=== PATIENT | female | born 1980 | race Two or more races ===

== ENCOUNTER 2018-08-27 06:26 | Day surgery (SDC) | payer BC ==
--- NOTE | 2018-08-27 07:10 | PCM.PREANE ---
Preanesthetic Assessment - Procedure Proposed Procedure: cervical cerclage - Anesthesia/Transfusion/Family Hx Anesthesia History: No Prior Anesthesia Family History of Anesthesia Reaction: No Transfusion History: No Prior Transfusion(s) - Review of Systems General: No Symptoms Pulmonary: No Symptoms Cardiovascular: No Symptoms Gastrointestinal: Other (GERD) Neurological: Other (back pain since ) - Physical Assessment Height: 4 ft 11 in Weight: 81.193 kg ASA Class: 2 Mental Status: Alert & Oriented x3 Airway Class: Mallampati = 2 Dentition: Reports: Normal Dentition ROM/Head Extension: Full Lungs: Clear to Auscultation, Normal Respiratory Effort Cardiovascular: Regular Rate, Regular Rhythm - Allergies Allergies/Adverse Reactions: Allergies Allergy/AdvReac Type Severity Reaction Status Date / Time No Known Allergies Allergy Verified 08/24/18 14:56 - Blood Blood Available: No - Anesthesia Plan Pre-Op Medication Ordered: None - Acknowledgements Anesthesia Type Planned: Spinal Pt an Appropriate Candidate for the Planned Anesthesia: Yes Alternatives and Risks of Anesthesia Discussed w Pt/Guardian: Yes Pt/Guardian Understands and Agrees with Anesthesia Plan: Yes PreAnesthesia Questionnaire HEENT History: Reports: None Cardiovascular History: Reports: None Respiratory History: Reports: Other (See Below) Other Respiratory History: "puntured lung as a child, age 7 or 8" Gastrointestinal History: Reports: GERD Genitourinary History: Reports: None RN HYPERBARIC History: Reports: Spontaneous Musculoskeletal History: Reports: Back Pain, Chronic Neurological History: Reports: None Psychiatric History: Reports: None Endocrine/Metabolic History: Reports: None Hematologic History: Reports: None Immunologic History: Reports: None Oncologic (Cancer) History: Reports: None Dermatologic History: Reports: None - Past Surgical History Head Surgeries/Procedures: Reports: None HEENT Surgical History: Reports: None Cardiovascular Surgical History: Reports: None Respiratory Surgical History: Reports: None GI Surgical History: Reports: None Female Surgical History: Reports: None Endocrine Surgical History: Reports: None Neurological Surgical History: Reports: None Musculoskeletal Surgical History: Reports: None Oncologic Surgical History: Reports: None Dermatological Surgical History: Reports: None - SUBSTANCE USE Smoking Status *Q: Never Smoker Recreational Drug Use History: No - HOME MEDS Home Medications: Home Meds Calcium Carbonate [Tums] 1 tab.chew CHEW ASDIRECTED PRN 08/24/18 [History] PNV95/Ferrous Fumarate/FA [ Vitamin Tablet] 1 tab PO DAILY 08/24/18 [ History] - CURRENT (IN HOUSE) MEDS Current Meds: Current Medications Lactated Ringer's (Ringers, Lactated) 1,000 mls @ 125 mls/hr IV ASDIRECTED [place]
[2018-08-27] MEDS ORDERED: Lactated Ringers 1,000 ML IV SCH (07:15)
[2018-08-27] MEDS ORDERED: Phenylephrine/Normal Saline 100 MCG/ML 10 ML Syringe ONE (08:15)
--- NOTE | 2018-08-27 08:30 | PCM.DCSUM1 ---
Discharge Summary - Hospital Course Diagnosis: Stroke: No - Discharge Data Discharge Date: 08/27/18 Discharge Disposition: Home, Self-Care 01 Condition: Good - Patient Instructions Diet: Usual Diet as Tolerated Activity: As Tolerated Driving: Do Not Drive Showering/Bathing: May Shower - Discharge Plan Home Medications: Home Meds Calcium Carbonate [Tums] 1 tab.chew CHEW ASDIRECTED PRN 08/24/18 [History] PNV95/Ferrous Fumarate/FA [ Vitamin Tablet] 1 tab PO DAILY 08/24/18 [ History] - Discharge Summary/Plan Comment DC Time >30 min.: Yes - General Info Date of Service: 08/27/18 Functional Status: Reports: Pain Controlled - Review of Systems General: Reports: No Symptoms HEENT: Reports: No Symptoms Pulmonary: Reports: No Symptoms Cardiovascular: Reports: No Symptoms Gastrointestinal: Reports: No Symptoms Genitourinary: Reports: No Symptoms Musculoskeletal: Reports: No Symptoms Skin: Reports: No Symptoms Neurological: Reports: No Symptoms Psychiatric: Reports: No Symptoms - Patient Data Vitals - Most Recent: Last Vital Signs Temp 36.4 C 08/27/18 06:45 Pulse 91 08/27/18 06:45 Resp 18 08/27/18 06:45 BP 126/69 08/27/18 06:45 Pulse Ox 99 08/27/18 06:45 Weight - Most Recent: 81.193 kg Lab Results - Last 24 hrs: Laboratory Results - last 24 hr 08/27/18 Range/Units 07:10 Plt Count 310 (150-400) K/uL Med Orders - Current: Current Medications Lactated Ringer's (Ringers, Lactated) 1,000 mls @ 125 mls/hr IV ASDIRECTED [place] Last Admin: 08/27/18 07:00 Dose: 125 mls/hr Discontinued Medications Phenylephrine HCl (Phenylephrine In Ns 100 Mcg/Ml) Confirm Administered Dose 1 mg .ROUTE .STK-MED ONE Stop: 08/27/18 08:16 - Exam General: Reports: Alert, Oriented HEENT: Reports: Pupils Equal, Pupils Reactive, EOMI, Mucous Membr. Moist/[place] Neck: Reports: Supple Lungs: Reports: Clear to Auscultation, Normal Respiratory Effort Cardiovascular: Reports: Regular Rate, Regular Rhythm GI/Abdominal Exam: Normal Bowel Sounds, Soft, Non-Tender, No Organomegaly, No Distention, No Abnormal Bruit, No Mass, Pelvis Stable (Female) Exam: Normal External Exam, Normal Speculum Exam, Normal Bimanual Exam Rectal (Female) Exam: Normal Exam, Normal Rectal Tone Back Exam: Reports: Normal Inspection, Full Range of Motion Extremities: Normal Inspection, Normal Range of Motion, Non-Tender, No Pedal Edema, Normal Capillary Refill Skin: Reports: Warm, Dry, Intact Wound/Incisions: Reports: Healing Well Neurological: Reports: No New Focal Deficit Psy/Mental Status: Reports: Alert, Normal Affect, Normal Mood
--- NOTE | 2018-08-27 08:31 | PCM.OPNOTE ---
- General Post-Op/Procedure Note Date of Surgery/Procedure: 08/27/18 Operative Procedure(s): Hinojosa Cerclage Pre Op Diagnosis: [id number] short crevix Post-Op Diagnosis: Same Anesthesia Technique: Spinal Primary Surgeon: Nic Rockwell EBL in mLs: 20 Complications: None Condition: Good
--- NOTE | 2018-08-27 08:48 | PCM.POSTAN ---
POST ANESTHESIA ASSESSMENT - MENTAL STATUS Mental Status: Alert, Oriented - VITAL SIGNS Pulse Rate: 74 SaO2: 99 Resp Rate: 12 Blood Pressure: 115/38 - RESPIRATORY Respiratory Status: Respiratory Rate WNL, Airway Patent, O2 Saturation Stable - CARDIOVASCULAR CV Status: Pulse Rate WNL, Blood Pressure Stable - GASTROINTESTINAL GI Status: No Symptoms - PAIN Pain Score: 0 - POST OP HYDRATION Hydration Status: Adequate & Stable
--- NOTE | 2018-08-27 11:13 | PCM48HPAN ---
Post Anesthesia Note - EVALUATION WITHIN 48HRS OF ANESTHETIC Vital Signs in Normal Range: Yes Patient Participated in Evaluation: Yes Respiratory Function Stable: Yes Airway Patent: Yes Cardiovascular Function Stable: Yes Hydration Status Stable: Yes Pain Control Satisfactory: Yes Nausea and Vomiting Control Satisfactory: Yes Mental Status Recovered: Yes Pulse Rate: 74 Resp Rate: 12 Blood Pressure: 115/38 - COMMENTS/OBSERVATIONS Free Text/Narrative:: no anesthesia problems
--- NOTE | 2018-08-27 14:51 | OR ---
SURGEON: Nic Rockwell MD DATE OF PROCEDURE: 08/27/2018 PREOPERATIVE DIAGNOSIS: Intrauterine at 23 to 24 weeks, short cervix. POSTOPERATIVE DIAGNOSIS: Intrauterine at 23 to 24 weeks, short cervix. PROCEDURE PERFORMED: Saucedo cerclage using Mersilene band. PRIMARY SURGEON: Nic Rockwell MD. F[employer]: OR tech. ANESTHESIA: Spinal, Rubi Savage and Dr. Cross. ESTIMATED BLOOD LOSS: 20 mL. COMPLICATIONS: None. INDICATION: This patient is 37. She is primigravida. She never had any procedure done on her cervix. On her 20-week ultrasound, anatomy and cervical length, was found to have cervical length of 1.2 cm with a small tunneling of the amniotic fluid. This condition was discussed with the patient and I recommended for her to have a Saucedo cervical cerclage to prevent premature dilatation of the cervix and premature . The patient had agreed to the procedure. PROCEDURE IN DETAIL: The patient was brought to the OR, properly identified. After adequate level of anesthesia, spinal, the patient was prepped and draped in sterile fashion as usual. Straight catheter was used to empty the bladder and then weighted speculum was placed in the vagina. Cervix was identified. An Allis clamp was applied to the cervix at the anterior and posterior lips. Using Mersilene band, suture, and CTX needle, circular incision around the cervix was done and tied to hold the cervix together without strangulation. Once this was done, the procedure was ended. Instrument and sponge counts were correct. The patient tolerated the procedure well, went to recovery room in stable general condition. JESUS / SARAHI /[id number]
== END 2018-08-27 11:15 | disposition home or self-care (01) ==
LOC: MW.SDS 06:26
PROVIDERS: ATTEND Obstetrics & Gynecology
DX: O26.872 Cervical shortening, second trimester (principal); O00.01 Abdominal pregnancy with intrauterine pregnancy; Z3A.24 24 weeks gestation of pregnancy
CPT/HCPCS: 36415; 59320; 85049; J2370; J7120; 00948